=== PATIENT | female | born 1990 | race Caucasian/White ===

== ENCOUNTER 2023-07-10 11:56 | Emergency (ER) | payer OTHER, SELFPAY ==
[2023-07-10 12:05] VITALS: BP 144/87; PULSE 68; RESP 20; TEMP 36.6; O2SAT 97; BMI 30.2
--- NOTE | 2023-07-10 12:25 | ED_ITS ---
HPI - Abdominal Pain General Chief Complaint: Abdominal Pain Stated Complaint: Abdominal pain Time Seen by Provider: 07/10/23 11:59 History of Present Illness HPI narrative: This 32-year-old female comes in with severe crampy abdominal pain. She states that she has some rather severe menses in the past but nothing like this. She states that the pain was so intense that she felt like she was going to collapse and lose consciousness. She came in by ambulance and an IV was established where she received a dose of Zofran. She states that she does not tolerate narcotics. She did take some ibuprofen earlier this morning. She denies any possibility of as she has had tubal ligation. She states that since the tubal ligation she does have occasions of more intense pain. Her pain today seems more localized in the left lower quadrant. She has been to OBGYN physicians regarding her symptoms and there was some discussion about possibility of endometriosis however she has had 2 laparoscopic surgeries in the was no evidence of endometrial tissue then. There was also some suspicion of polycystic ovarian syndrome however an ultrasound about a year ago did not show any evidence of ovarian cysts by her report. Related Data Home Medications Medication Instructions Recorded Confirmed dicyclomine 10 mg capsule 10 mg PO 3XD 03/17/23 04/13/23 fexofenadine 180 mg tablet 180 mg PO DAILY 03/17/23 04/13/23 (Allergy Relief (fexofenadine)) metformin 500 mg tablet,extended 1,000 mg PO BID 03/17/23 04/13/23 release 24 hr pantoprazole 40 mg tablet,delayed 40 mg PO DAILY 03/17/23 04/13/23 release Previous Rx's Medication Instructions Recorded ketorolac 10 mg tablet 10 mg PO TID 5 days #15 tabs 07/10/23 tramadol 50 mg tablet 50 mg PO Q6H PRN pain #20 tabs 07/10/23 Allergies Allergy/AdvReac Type Severity Reaction Status Date / Time topiramate [From Topamax] Allergy Intermediate slurred Verified 04/13/23 13:37 speach adhesive tape Allergy Mild rash Verified 04/13/23 13:37 hydrocodone Allergy Mild Vomiting Verified 04/13/23 13:37 Opioids - Morphine Analogues Allergy Mild Vomiting Verified 04/13/23 13:37 oxycodone Allergy Mild Vomiting Verified 04/13/23 13:37 Review of Systems Status of ROS Reports: 10 or more systems reviewed and unremarkable except as noted in History and below Narrative Constitutional: No fevers, no weight gain or loss. Eyes: No discharge. No vision changes. HENT: No congestion, no sore throat, no ear pain. Cardiovascular: No chest pain, no palpitations. Respiratory: No shortness of breath, no wheezes, no cough. Gastrointestinal: No vomiting, no diarrhea. Severe lower abdominal pain which is crampy in nature. Genitourinary: No dysuria, no hematuria. Musculoskeletal: Normal range of motion. Skin: No rashes, no pruritis. Neurological: No dizziness, weakness, sensory change, speech change. Endo/Heme/Allergies: No bruising or bleeding. No polydipsia. Pysch: no suicidality, no anxiety, no insomnia. All other systems reviewed and are negative. PFSH PFS Social History Smoking Status: Never smoker How often do you have a drink containing alcohol: never How often do you have six or more drinks on one occasion: Never AUDIT-C Alcohol total score: 0 Non-prescribed substance use: denies use Exam Narrative: Exam Narrative: Constitutional: Well-developed, well-nourished, no acute distress. HEENT: Normocephalic, atraumatic. Neck: Normal range of motion. Nontender. Supple. Heart: Regular. No murmurs. Normal rate. Intact distal pulses. Lungs: Clear to auscultation. No chest discomfort. No wheezes, rhonchi, or rales. Abdomen: Normal bowel sounds. No rebound tenderness. Genitalia: Deferred. Back: No midline tenderness. Normal range of motion. Extremities: Normal range of motion. No injury. Skin: Intact. No rash. Warm. No erythema or pallor. Neurologic: No altered sensation. No weakness. Alert and oriented. Psychiatric: No suicidality. No anxiety or depression. No insomnia. Nursing notes and vitals signs are reviewed. Const: Vital Signs, click to edit/add: Vital Signs - 24 hr 07/10/23 12:05 Temperature 98 F Pulse Rate [Pulse Oximeter] 68 Respiratory Rate 20 Blood Pressure [Ri ght Upper Arm] 144/87 H Pulse Oximetry 97 Oxygen Delivery Me thod Room Air Course Vital Signs Vital signs: Initial Vital Signs Temperature 98 F 07/10/23 12:05 Temperature Source Temporal Artery Scan 07/10/23 12:05 Pulse Rate 68 07/10/23 12:05 Respiratory Rate 20 07/10/23 12:05 Blood Pressure 144/87 H 07/10/23 12:05 Blood Pressure Mean 106 H 07/10/23 12:05 Pulse Oximetry 97 07/10/23 12:05 Oxygen Delivery Method Room Air 07/10/23 12:05 Vital Signs Temperature 98 F 07/10/23 12:05 Pulse Rate 68 07/10/23 12:05 Respiratory Rate 20 07/10/23 12:05 Blood Pressure 144/87 H 07/10/23 12:05 Pulse Oximetry 97 07/10/23 12:05 Oxygen Delivery Method Room Air 07/10/23 12:05 Temperature 98 F 07/10/23 12:05 Pulse Rate 68 07/10/23 12:05 Respiratory Rate 20 07/10/23 12:05 Blood Pressure 144/87 H 07/10/23 12:05 Pulse Oximetry 97 07/10/23 12:05 Oxygen Delivery Method Room Air 07/10/23 12:05 Medications Administered Medications: Discontinued Medications Generic Name Dose Route Start Last Admin Trade Name Sri PRN Reason Stop Dose Admin Ketorolac Tromethamine 30 mg 07/10/23 12:24 07/10/23 12:34 Ketorolac 30 Mg/Ml Inj IVP 07/10/23 12:25 30 mg ONCE ONE Administration MDM - Abdominal Pain MDM Narrative Medical decision making narrative: This patient came in by ambulance because of severe menstrual cramping. She states he typically does have rather intense cramping with menstruation but today it was much more intense causing or almost to collapse and have loss of consciousness. She is feeling better after arrival here but still rates her pain at 5/10 in severity. She did receive Zofran in the ambulance ride here but no pain medicines. I did administer Toradol 30 mg intravenously and this brought better relief for her. I did discuss lab and imaging options but the patient states that she has had such studies and does not think that we will find anything new. She does have normal vital signs and her abdominal exam is not suspicious for an acute abdomen. The patient is okay to be discharged home. I did provide prescriptions for Toradol and tramadol. Discharge Plan Discharge Clinical Impression: Abdominal pain Patient Disposition: Home, Self-Care Condition: Stable Additional Instructions: Take medication as needed and indicated. Follow up with MD also as needed or return if worsening. Prescriptions: New tramadol 50 mg tablet 50 mg PO Q6H PRN (Reason: pain) Qty: 20 0RF ketorolac 10 mg tablet 10 mg PO TID 5 Days Qty: 15 0RF No Action dicyclomine 10 mg capsule 10 mg PO 3XD pantoprazole 40 mg tablet,delayed release (DR/EC) 40 mg PO DAILY fexofenadine [Allergy Relief (fexofenadine)] 180 mg tablet 180 mg PO DAILY metformin 500 mg tablet extended release 24 hr 1,000 mg PO BID Follow Up/Referrals: Provider,Not a Local [Primary Care Provider] - Stand Alone Forms: [email or web address] Info Instructions
[2023-07-10] MEDS: KETOROLAC 30 MG/ML inj IVP (12:34)
== END 2023-07-10 13:36 | disposition home or self-care (01) ==
PROVIDERS: Emergency Provider Emergency Medicine Emergency Medical Services
DX: R10.32 Left lower quadrant pain (principal)
CPT/HCPCS: 96374; 99283; 99284; J1885

== ENCOUNTER 2023-10-05 14:45 | Outpatient (CLI) | payer OTHER, SELFPAY | END 2023-10-05 14:46 | disposition home or self-care (01) | LOC: NFLDREF 10-07 11:46 | PROVIDERS: Visit Provider Physician Assistant | DX: R10.9 Unspecified abdominal pain (principal) | CPT/HCPCS: 87086 ==

== ENCOUNTER 2024-09-11 14:30 | Outpatient (CLI) | payer OTHER, SELFPAY ==
[2024-09-11 23:23] LABS: Chlamydia DNA Amplified* NOT DETECTED (No Detected); GC DNA Amplified* NOT DETECTED (No Detected)
== END 2024-09-11 14:31 | disposition home or self-care (01) ==
LOC: FRMREF 14:30
PROVIDERS: PCP Family Medicine; Visit Provider Family Medicine
DX: R10.2 Pelvic and perineal pain (principal); Z11.3 Encounter for screening for infections with a predominantly sexual mode of transmission
CPT/HCPCS: 87491; 87591

== ENCOUNTER 2024-09-13 11:20 | Outpatient (CLI) | payer OTHER, SELFPAY ==
--- NOTE | 2024-09-13 11:30 | CRLHL7_ITS ---
For Patients: As a result of the Century Cures Act, medical imaging exams and procedure reports are released immediately into your electronic medical record. You may view this report before your referring provider. If you have questions, please contact your health care provider. INDICATION: Pelvic pain. Hysterectomy. TECHNIQUE: Transabdominal and endovaginal pelvic ultrasound. Endovaginal ultrasound was required to visualize the adnexal regions. FINDINGS: Uterus: Surgically absent. Ovaries: No mass lesions. Intact spectral arterial waveforms. Right ovary: 2.6 x 2.0 x 2.4 cm Left ovary: 2.8 x 1.6 x 2.0 cm Cul-de-sac: No free fluid. Urinary bladder: Unremarkable. Bladder volume 73.96 mL. Wall = 3 mm. IMPRESSION 1. Hysterectomy. 2. Unremarkable appearance of the ovaries with intact arterial blood flow. 3. The urinary bladder appears unremarkable. IDRIS DILL M.D. Pediatric/Diagnostic Radiologist [email or web address] Transcribed: 10:[address]/Dictated by: Idris Dill MD @ 09/18/2024 9:54:00 AM (Electronically Signed)
== END 2024-09-13 11:21 | disposition home or self-care (01) ==
LOC: US 11:21
PROVIDERS: PCP Family Medicine; Visit Provider Family Medicine
DX: R10.2 Pelvic and perineal pain (principal)
CPT/HCPCS: 76830; 76856; 93976

== ENCOUNTER 2024-11-22 08:29 | Outpatient (CLI) | payer OTHER, SELFPAY ==
[2024-11-22 09:15] LABS: PCR FLU A Negative PCR FLU A (Negative); PCR FLU B Negative PCR FLU B (Negative); PCR RSV Negative PCR RSV (Negative); SARS PCR* Negative SARS-CoV-2 (Negative)
== END 2024-11-22 08:30 | disposition home or self-care (01) ==
LOC: FRMREF 08:29
PROVIDERS: PCP Family Medicine
DX: J02.9 Acute pharyngitis, unspecified (principal)
CPT/HCPCS: 87631

== ENCOUNTER 2024-11-27 15:10 | Outpatient (CLI) | payer OTHER, SELFPAY | END 2024-11-27 15:11 | disposition home or self-care (01) | LOC: NFLDREF 12-17 08:07 | PROVIDERS: PCP Family Medicine; Referring Provider Family Medicine | DX: N39.0 Urinary tract infection, site not specified (principal) | CPT/HCPCS: 87086 ==

== ENCOUNTER 2024-12-20 15:20 | Outpatient (CLI) | payer OTHER, SELFPAY ==
--- NOTE | 2024-12-20 15:30 | CRLHL7_ITS ---
For Patients: As a result of the Century Cures Act, medical imaging exams and procedure reports are released immediately into your electronic medical record. You may view this report before your referring provider. If you have questions, please contact your health care provider. Indication: Incontinence without sensory awareness. Technique: Multiplanar multisequence MR imaging of the brain prior to and following intravenous administration of 12 mL Dotarem. Comparison: None. Findings: The ventricles and sulci are within normal limits for patient age. No mass effect or midline shift. No parenchymal signal abnormalities. No pathologic intracranial enhancement. No intracranial hemorrhage or pathologic extra-axial fluid collection. No diffusion restriction to suggest acute infarction. The major arterial flow voids of the skull base are preserved. Globes are symmetric. Minimal ethmoid sinus mucosal thickening. Mastoid air cells are clear. Impression: Unremarkable MRI of the brain. Dictated by Jose Kwon MD @ 12/20/2024 8:16:29 PM (Electronically Signed)
== END 2024-12-20 15:21 | disposition home or self-care (01) ==
LOC: MRI 15:20
PROVIDERS: PCP Family Medicine; Visit Provider Family Medicine
DX: N39.42 Incontinence without sensory awareness (principal)
CPT/HCPCS: 70553; A9575

== ENCOUNTER 2024-12-25 13:36 | Outpatient (CLI) | payer OTHER, SELFPAY | END 2024-12-25 13:37 | disposition home or self-care (01) | LOC: FRMREF 13:37 | PROVIDERS: PCP Family Medicine; Visit Provider Family Medicine | DX: N39.42 Incontinence without sensory awareness (principal) | CPT/HCPCS: 80053; 87086 ==